=== PATIENT | male | born 1990 | race African-American/Black ===

== ENCOUNTER 2018-07-17 22:55 | Emergency (ER) | payer SELFPAY ==
[~2018-07-17] VITALS: Ht 175.3 cm; Wt 92.5 kg
[2018-07-17 23:04] VITALS: BP 131/83; Ht 175.3 cm; Wt 92.5 kg
== END 2018-07-18 00:20 | disposition home or self-care (01) ==
LOC: ED 22:55
DX: S61.411A Laceration without foreign body of right hand, initial encounter (principal); R03.0 Elevated blood-pressure reading, without diagnosis of hypertension
CPT/HCPCS: 90715